=== PATIENT | female | born 1950 | race Caucasian/White ===

== ENCOUNTER 2019-11-15 08:52 | Day surgery (SDC) | payer MEDICARE ==
--- NOTE | 2019-11-15 08:24 | HP ---
DATE OF SURGERY: 11/15/2019 HISTORY OF PRESENT ILLNESS: The patient is a 69 year-old with history of large ulcerated exophytic lesion on her nose that has been increasing in size over the past couple of months. There is concern whether it is a malignancy. She is in need of definitive excision possible skin graft, possible flap. PAST MEDICAL HISTORY: Hypertension, chronic lung disease, chronic shoulder issues. PAST SURGICAL HISTORY: Partial hysterectomy in the past. She had bladder surgery. She had shoulder surgery bilaterally. She had some sort of hiatal hernia repair in the past. MEDICATIONS: Amlodipine, Klor-Con, fluoxetine, Furosemide, Pravastatin for some hyperlipidemia. She is on vitamin B12, flaxseed, calcium, aspirin, omeprazole. ALLERGIES: PREDNISONE. FAMILY HISTORY: Heart disease and cancer. SOCIAL HISTORY: Half pack per day smoker. Denies alcohol abuse. REVIEW OF SYSTEMS: Fourteen systems reviewed. No chest pain or palpitations. Other systems negative or noncontributory as above and per preadmission questionnaire. She denied any prior head or neck radiation. PHYSICAL EXAMINATION: GENERAL: No acute distress. HEENT: Sclerae nonicteric. Nose - She has an ulcerated exophytic lesion on her nose. NECK: No JVD. CHEST: Equal excursion, nonlabored breathing. CVS: Regular rate and rhythm. ABDOMEN: Soft. EXTREMITIES: No significant edema. NEURO: Alert, oriented, moving extremities symmetrically. No gross motor deficits noted. PSYCH: Appropriate mood and affect. IMPRESSION: Nonhealing nose lesion with some ulceration. There is a risk of concern for malignancy. I feel she needs to have excision, possible skin graft or flap, risks and benefits explained in detail including but not limited to bleeding or infection, risk of involved margins possibly other treatments or radiotherapy, general risk of anesthesia, deep venous thrombosis, pulmonary embolism, pneumonia, risk of cardiopulmonary event but not limited to, risk of failure to heal the graft possibly requiring healing by secondary intent, general risk of anesthesia, deep venous thrombosis but not limited to. Consent obtained. Will proceed with excisional biopsy of ulcerated nonhealing lesion of nose as an outpatient.
[~2019-11-15 08:52] MED LIST: Lactated Ringers 1,000 ML IV ONE; MINERAL OIL LIGHT 10 ML FOR SURGERY ONE; Sensorcaine 0.25% 10 ML ONE
[2019-11-15] MEDS ORDERED: Lactated Ringers 1,000 ML IV ONE (09:41)
[2019-11-15] MEDS ORDERED: CEFAZOLIN 2 GM-D5W BAG** 2 GM/50 ML ML IV SCH (10:00)
[2019-11-15] MEDS ORDERED: Lactated Ringers 1,000 ML IV SCH (10:00)
[2019-11-15] MEDS ORDERED: BRIDION 200MG/2ML IV ONE (12:45)
[2019-11-15] MEDS ORDERED: DIPRIVAN 200 MG/20 ML IV ONE (12:45)
[2019-11-15] MEDS ORDERED: Zofran 4 MG/2 ML VIAL ONE (12:45)
[2019-11-15] MEDS ORDERED: TORAdol 30 mg Injection ONE (12:45)
[2019-11-15] MEDS ORDERED: Zemuron 100 MG/10 ML ONE (12:45)
[2019-11-15] MEDS ORDERED: SUBLIMAZE 100 MCG/2 ML ONE ×2 (12:45→14:10)
[2019-11-15] MEDS ORDERED: Versed 2 MG/2 ML Injection ONE (12:46)
[2019-11-15] MEDS ORDERED: Ketamine HCl 50 MG/ML ONE (12:55)
--- NOTE | 2019-11-15 15:20 | OP ---
SURGERY DATE/TIME: 11/15/2019 1253 PREOPERATIVE DIAGNOSIS: Ulcerated nonhealing lesion nose. POSTOPERATIVE DIAGNOSIS: Ulcerated nonhealing lesion nose. PROCEDURE: Excisional biopsy of 2 cm ulcerated nonhealing lesion of the nose with margins with full thickness skin graft coverage 3 cm/sq. SURGEON: Dr. Adolfo Shin. ANESTHESIA: General. ESTIMATED BLOOD LOSS: Minimal. INDICATIONS: As noted above. Risks and benefits explained in detail but not limited to and consent obtained. The site confirmed and marked in preoperative holding area. DESCRIPTION OF PROCEDURE AND FINDINGS: The patient is taken to the operating room. General anesthesia introduced. Prepped and draped in usual sterile fashion. After official time out and no disagreement with planned procedure, marking out to normal appearing skin around this large ulcerated lesion taking up the left side of her nose. Dissection carried down to what appeared to be normal musculature underneath. Specimen passed off. It measured about 2 cm in size. It was thought it was too large for flap coverage. [place] it was best to go ahead and put a skin graft on this area. It seemed to have the best area base of the neck some wrinkled skin. Therefore a full thickness skin graft carefully harvested, defatted and some slits were made in the skin graft to allow for any drainage. It was then secured on the wound bed with interrupted 4-0 Prolene and some 6-0 PDS. Adaptic, mineral oil and compression 2x2 dressing carefully applied with Prolene sutures tied over the top. Sterile dressing was applied. The neck donor site was closed with 3-0 Vicryl and 4-0 Vicryl. Steri-Strips and sterile dressing applied. Again, the skin graft was 2 cm by a little over 1 cm wide so 3 cm/sq surface area full thickness skin graft. The patient tolerated the procedure well. There were no immediate complications. There was no family available here to discuss the findings with currently. I will see her back in the office next week. She is to continue compression dressing until she returns to the office. She can change her other bandages as needed.
[2019-11-15 15:48] VITALS: O2SAT 93
[2019-11-15 15:51] VITALS: BP 155/87; PULSE 72
== END 2019-11-15 15:30 | disposition home or self-care (01) ==
LOC: SDC 08:52
PROVIDERS: ATTEND Surgery
DX: C44.321 Squamous cell carcinoma of skin of nose (principal); I10 Essential (primary) hypertension; E78.5 Hyperlipidemia, unspecified; Z79.899 Other long term (current) drug therapy
CPT/HCPCS: 88305; 99100; J0690; J1885; J2250; J2405; J2704; J3010; A9270-GY

== ENCOUNTER 2021-01-15 09:56 | Day surgery (SDC) | payer MEDICARE ==
--- NOTE | 2021-01-15 08:35 | HP ---
DATE OF SURGERY: 01/15/2021 HISTORY OF PRESENT ILLNESS: The patient is a 70 year-old with change in color of lesion upper abdomen in need of excision of indeterminate behavior. She has also got lesion of indeterminate behavior nasal area also in need of excision. She has prior history of skin cancer. Family history of heart disease, lung cancer. PAST MEDICAL HISTORY: Reflux, hypertension, hyperlipidemia, some anxiety. PAST SURGICAL HISTORY: Cholecystectomy. Hiatal hernia repair. Partial hysterectomy. Shoulder replaced. She had a skin lesion removed in the past from her nose. MEDICATIONS: She has been on amlodipine, Klor-Con, fluoxetine, furosemide, Pravastatin, flaxseed, calcium, aspirin, omeprazole. ALLERGIES: PREDNISONE. FAMILY HISTORY: Heart disease. Lung cancer. SOCIAL HISTORY: Half pack per day smoker. Denies alcohol abuse. REVIEW OF SYSTEMS: Fourteen systems reviewed. Other systems negative or noncontributory as above and per preadmission questionnaire. PHYSICAL EXAMINATION: GENERAL: No acute distress. HEENT: Sclerae nonicteric. NECK: No JVD. CHEST: Equal excursion, nonlabored breathing. CVS: Regular rate and rhythm. ABDOMEN: Soft. No peritoneal signs. EXTREMITIES: No significant edema. NEURO: Alert, oriented, moving extremities symmetrically. PSYCH: Appropriate mood and affect. IMPRESSION: Nonhealing lesion on the nose area as well as on upper abdomen, lesions of indeterminate behavior in need of excisional biopsy. Risks and benefits explained in detail including but not limited to bleeding or infection, risk if cancer risk of involved margins possibly requiring wider excision or other treatments. General risk of anesthesia or sedation, aches, pains, burning or numbness, risk of skin graft needed and possible failure to take of the skin graft possibly requiring healing by secondary intent or other procedures. She understands as well as general risk of anesthesia, deep vein thrombosis, pulmonary embolism, pneumonia, will proceed as an outpatient excisional biopsy of lesion of the nose possible flap closure possible skin graft, excisional biopsy of indeterminate behavior of the abdomen possible flap closure.
[~2021-01-15 09:56] MED LIST changes: -MINERAL OIL LIGHT 10 ML FOR SURGERY ONE
[2021-01-15] MEDS ORDERED: Lactated Ringers 1,000 ML IV ONE (10:40)
[2021-01-15] MEDS ORDERED: CEFAZOLIN 2 GM-D5W BAG** 2 GM/50 ML ML IV SCH (11:00)
[2021-01-15] MEDS ORDERED: Lactated Ringers 1,000 ML IV SCH (11:00)
[2021-01-15] MEDS ORDERED: Zemuron 100 MG/10 ML ONE (13:17)
[2021-01-15] MEDS ORDERED: Zofran 4 MG/2 ML VIAL ONE (13:17)
[2021-01-15] MEDS ORDERED: BRIDION 200MG/2ML IV ONE (13:17)
[2021-01-15] MEDS ORDERED: DIPRIVAN 200 MG/20 ML IV ONE (13:17)
[2021-01-15] MEDS ORDERED: Xylocaine-Mpf 2% 5 Ml Vial ONE (13:17)
[2021-01-15] MEDS ORDERED: SUBLIMAZE 100 MCG/2 ML ONE ×2 (13:17→15:31)
[2021-01-15] MEDS ORDERED: Decadron 4 MG INJ ONE (13:17)
[2021-01-15] MEDS ORDERED: Ephedrine Sulfate 50 MG/ML ONE (14:33)
[2021-01-15 16:41] VITALS: BP 133/96; PULSE 75; O2SAT 96
--- NOTE | 2021-01-16 10:55 | OP ---
SURGERY DATE/TIME: 01/15/2021 1403 PREOPERATIVE DIAGNOSIS: History of prior skin cancer, enlarging lesions of indeterminate behavior nose and abdominal wall. POSTOPERATIVE DIAGNOSIS: History of prior skin cancer, enlarging lesions of indeterminate behavior nose and abdominal wall. PROCEDURES: 1) Excisional biopsy of nonhealing nasal lesion of indeterminate behavior with local advancement flap closure (approximately 1.5 cm with margins). 2) Excisional biopsy of abdominal lesion of indeterminate behavior (approximately 1.5 cm). SURGEON: Dr. Adolfo Shin. ANESTHESIA: General. ESTIMATED BLOOD LOSS: Minimal. INDICATIONS: As noted above. Risks and benefits explained in detail and not limited to and consent obtained. DESCRIPTION OF PROCEDURE AND FINDINGS: The patient is taken to the operating room. General anesthesia induced. The face over nasal area, neck and post-auricular area as well as her abdomen were all prepped and draped in usual sterile fashion. After official time out and no disagreement with planned procedure, starting first with the nasal lesion marking out to normal appearing skin that she has available next to the old skin graft site. Dissection carried down through what appeared to be some normal subcutaneous tissue and carefully dissected off this segment of tissue and passed off for pathology measuring 1.5 cm. Flap was undermined allowing the flaps to be advanced back to the midline with interrupted 4-0 Vicryl and then interrupted 5-0 and 6-0 Prolene interrupted and vertical mattress type sutures to approximate this. The patient tolerated the procedure well. Attention is then turned to the nonhealing abdominal lesion. Dissecting out in spindle-shaped fashion around it. Dissection carried down to normal appearing subcutaneous tissue. It was passed off for pathology. It measured about 1.5 cm with margins closed in intermediate fashion. Deep layer 3-0 Vicryl closing the subcu, deep subcu. Skin closed with 4-0 Vicryl running subcuticular fashion. Steri-Strips and sterile dressing applied. The patient tolerated the procedure well. There were no immediate complications. Findings discussed with the family out in the waiting area.
== END 2021-01-15 16:30 | disposition home or self-care (01) ==
LOC: SDC 09:56
PROVIDERS: ATTEND Surgery
DX: D23.39 Other benign neoplasm of skin of other parts of face (principal); L57.0 Actinic keratosis; D23.5 Other benign neoplasm of skin of trunk; Z85.828 Personal history of other malignant neoplasm of skin
CPT/HCPCS: 99100; J0690; J1100; J2405; J2704; J3010

== ENCOUNTER 2022-05-25 01:40 | Emergency (ER) | payer MEDICARE ==
[2022-05-25] MEDS ORDERED: Hydromorphone 1 mg/ml Injection IV ONE (02:15)
[2022-05-25] MEDS ORDERED: Zofran 4 MG/2 ML VIAL IV ONE (02:15)
[2022-05-25] MEDS ORDERED: Sodium Chloride 0.9% 1000 ML 1,000 ML IV STA (02:15)
[2022-05-25] MEDS ORDERED: Zofran 4 MG/2 ML VIAL ONE (02:25)
[2022-05-25] MEDS ORDERED: Hydromorphone 1 mg/ml Injection ONE (02:26)
[2022-05-25] MEDS ORDERED: Sodium Chloride 0.9% 1000 ML 1,000 ML ONE (02:26)
--- NOTE | 2022-05-25 02:28 | ERPHSYRPT ---
- History of Present Illness Time Seen by Provider: 05/25/22 02:23 Historian: patient, family Exam Limitations: no limitations Patient Subjective Stated Complaint: pt states she has been having pain in her rt lower back for approx 1 week. states the pain was intermmittent for first 3 days and for last 4 days has been more constant and has been much worse yesterday and today. Triage Nursing Assessment: pt alert and oriented, answers questions approp. pt ambulatory with steady gait noted. respirations nonlabored with lungs cta. abd soft and nontender to light palpation. bowel sounds present x4. pt reports no tenderness with palpation to back. reports increase in pain with movement Physician History: Pt has right flank pain similar to her previous kidney stone ( but that was 30 yrs ago) No N or V; abd is nontender without peritoneal signs or masses. No CP or SOBreath. Timing/Duration: today Activities at Onset: none Quality: sharpness, throbbing Abdominal Pain Onset Location: flank Pain Radiation: flank Severity of Pain-Max: moderate Severity of Pain-Current: moderate Associated Symptoms: denies symptoms Previous symptoms: same symptoms as today Allergies/Adverse Reactions: prednisone Allergy (Severe, Verified 05/25/22 02:13) Home Medications: Amlodipine Besylate [Norvasc] 10 mg PO HS 11/04/19 [History] Aspirin EC 81 mg [Ecotrin 81 mg] 81 mg PO HS 11/04/19 [History] Cyanocobalamin (Vitamin B-12) [Vitamin B-12] 1,000 mcg PO DAILY 11/04/19 [History] Fluoxetine HCl 20 mg [Prozac 20 MG] 20 mg PO DAILY 11/04/19 [History] Furosemide 40 mg [Lasix 40 MG] 40 mg PO DAILY 11/04/19 [History] Omeprazole 40 mg PO HS 11/04/19 [History] Potassium Chloride [Klor-Con M20] 20 meq PO DAILY 11/04/19 [History] Pravastatin Sodium [Pravachol] 40 mg PO HS 11/04/19 [History] flaxseed oiL [Flaxseed Oil] 1,400 mg PO DAILY 11/04/19 [History] Calcium Carbonate [Calcium] 1,200 mg PO DAILY 12/27/20 [History] Hx Tetanus, Diphtheria Vaccination/Date Given: Yes (apr 20) Hx Influenza Vaccination/Date Given: Yes Hx Pneumococcal Vaccination/Date Given: Yes Immunizations Up to Date: Yes Travel Risk - International Travel Have you traveled outside of the country in past 3 weeks: No - Coronavirus Screening Are you exhibiting any of the following symptoms?: No Close contact with a COVID-19 positive Pt in past 14-21 Days: No - Vaccine Status Have you recieved a Covid-19 vaccination: Yes 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[employer] - Vaccination Dates Date of 2cond Vaccination (if applicable): august 2020 - Review of Systems Constitutional: No Fever, No Chills Eyes: No Symptoms Ears, Nose, & Throat: No Symptoms Respiratory: No Cough, No Dyspnea Cardiac: No Chest Pain, No Edema, No Syncope Abdominal/Gastrointestinal: No Abdominal Pain, No Nausea, No Vomiting, No Diarrhea Genitourinary Symptoms: Flank Pain, No Dysuria Musculoskeletal: No Back Pain, No Neck Pain Skin: No Rash Neurological: No Dizziness, No Focal Weakness, No Sensory Changes Psychological: No Symptoms Endocrine: No Symptoms Hematologic/Lymphatic: No Symptoms Immunological/Allergic: No Symptoms All Other Systems: Reviewed and Negative - Past Medical History Pertinent Past Medical History: Yes Neurological History: No Pertinent History ENT History: No Pertinent History Cardiac History: Other Respiratory History: No Pertinent History Endocrine Medical History: No Pertinent History Musculoskeletal History: Osteoarthritis GI Medical History: GERD, Other History: No Pertinent History Psycho-Social History: No Pertinent History Female Reproductive Disorders: No Pertinent History Other Medical History: 2 LEAKING VALVES IN HEART; AAA - Past Surgical History Past Surgical History: Yes Neuro Surgical History: No Pertinent History Cardiac: No Pertinent History Respiratory: No Pertinent History Gastrointestinal: Cholecystectomy, Hernia Repair Genitourinary: No Pertinent History Musculoskeletal: Joint Replacement Female Surgical History: Hysterectomy Other Surgical History: partial hysterectomy. bilateral shoulder replacement, lt shoulder x2. 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 AAA repair with 5 stents- december 2021 - Social History Smoking Status: Current every day smoker How long have you smoked: 44 years Exposure to second hand smoke: Yes Drug Use: none Patient Lives Alone: No - Nursing Vital Signs Nursing Vital Signs: Initial Vital Signs Temperature 97.8 F 05/25/22 01:54 Pulse Rate 56 L 05/25/22 01:54 Respiratory Rate 16 05/25/22 01:54 Blood Pressure 129/90 05/25/22 01:54 O2 Sat by Pulse Oximetry 98 05/25/22 01:54 Pain Scale Pain Intensity 3 - Physical Exam General Appearance: no apparent distress, alert Eye Exam: PERRL/EOMI, eyes nml inspection Ears, Nose, Throat Exam: normal ENT inspection, pharynx normal, moist mucous membranes Neck Exam: normal inspection, non-tender, supple, full range of motion Respiratory Exam: normal breath sounds, lungs clear, No respiratory distress Cardiovascular Exam: regular rate/rhythm, normal heart sounds Gastrointestinal/Abdomen Exam: soft, No tenderness, No mass Pelvic Exam: deferred Rectal Exam: deferred Back Exam: normal inspection, normal range of motion, No CVA tenderness, No vertebral tenderness Extremity Exam: normal inspection, normal range of motion, pelvis stable Neurologic Exam: alert, oriented x 3, cooperative, normal mood/affect, nml cerebellar function, sensation nml, No motor deficits Skin Exam: normal color, warm, dry SpO2 Interpretation: normal SpO2: 98 O2 Delivery: Room Air - Course Nursing assessment & vital signs reviewed: Yes Ordered Tests: Active Orders 24 hr Category Date Time Status IV Insertion STAT Care 05/25/22 02:15 Active ABDOMEN AND PELVIS W/0 CONTRAS [CT] Stat Exams 05/25/22 02:16 Taken CBC W DIFF Stat Lab 05/25/22 02:24 Completed CMP Stat Lab 05/25/22 02:24 Completed CULTURE,URINE Stat Lab 05/25/22 02:23 Received LIPASE Stat Lab 05/25/22 02:24 Completed Lactic Acid Stat Lab 05/25/22 02:15 Completed UA W/RFX CULTURE Stat Lab 05/25/22 02:23 Completed Medication Summary Discontinued Medications Generic Name Dose Route Start Last Admin Trade Name Aleksandar PRN Reason Stop Dose Admin Hydromorphone HCl 1 mg 05/25/22 02:15 05/25/22 02:28 Hydromorphone 1 Mg/1ml Inj 1 Mg/Ml Syringe IV 05/25/22 02:16 1 mg STAT ONE Administration Hydromorphone HCl Confirm 05/25/22 02:26 Hydromorphone 1 Mg/1ml Inj 1 Mg/Ml Syringe Administered 05/25/22 02:27 Dose 1 mg .ROUTE .STK-MED ONE Sodium Chloride 1,000 mls @ 999 mls/hr 05/25/22 02:15 05/25/22 02:29 Sodium Chloride 0.9% 1000 Ml IV 05/25/22 03:15 999 mls/hr .Q1H1M STA Administration Sodium Chloride Confirm 05/25/22 02:26 Sodium Chloride 0.9% 1000 Ml Administered 05/25/22 02:27 Dose 1,000 mls @ ud .ROUTE .STK-MED ONE Ondansetron HCl 4 mg 05/25/22 02:15 05/25/22 02:29 Ondansetron Hcl 4 Mg/2 Ml Vial IV 05/25/22 02:16 4 mg STAT ONE Administration Ondansetron HCl Confirm 05/25/22 02:25 Ondansetron Hcl 4 Mg/2 Ml Vial Administered 05/25/22 02:26 Dose 4 mg .ROUTE .STK-MED ONE Lab/Rad Data: Laboratory Result Diagrams 05/25/22 02:24 05/25/22 02:24 Laboratory Results 05/25/22 05/25/22 05/25/22 Range/Units 02:24 02:24 02:23 WBC 5.7 (4.0-10.5) x10^3/uL RBC 4.37 (4.1-5.4) x10^6/uL Hgb 14.4 (12.0-16.0) g/dL Hct 43.6 (35-47) % MCV 99.8 (78-100) fL MCH 33.0 H (26-32) pg MCHC 33.0 (32-36) g/dL RDW 13.2 (11.5-14.0) % Plt Count 136 L (150-450) x10^3/uL MPV 11.6 H (7.5-11.0) fL Gran % 31.8 L (36.0-66.0) % Immature Gran % (Auto) 0.2 (0.00-0.4) % Nucleat RBC Rel Count 0.0 (0.00-0.1) % Eos # (Auto) 0.13 (0-0.5) x10^3/uL Immature Gran # (Auto) 0.01 (0.00-0.03) x10^3u/L Absolute Lymphs (auto) 3.26 (1.0-4.6) x10^3/uL Absolute Monos (auto) 0.43 (0.0-1.3) x10^3/uL Absolute Nucleated RBC 0.00 (0.00-0.01) x10^3u/L Lymphocytes % 57.4 H (24.0-44.0) % Monocytes % 7.6 (0.0-12.0) % Eosinophils % 2.3 (0.00-5.0) % Basophils % 0.7 (0.0-0.4) % Absolute Granulocytes 1.81 (1.4-6.9) x10^3/uL Basophils # 0.04 (0-0.4) x10^3/uL Sodium 137 (137-145) mmol/L Potassium 3.9 (3.5-5.1) mmol/L Chloride 108 H (98-107) mmol/L Carbon Dioxide 20 L (22-30) mmol/L Anion Gap 12.9 (5-15) MEQ/L BUN 20 H (7-17) mg/dL Creatinine 1.01 (0.52-1.04) mg/dL Estimated GFR 57.1 ML/MIN Glucose 106 (74-106) mg/dL Lactic Acid (0.4-2.0) Calcium 9.1 (8.4-10.2) mg/dL Total Bilirubin 0.40 (0.2-1.3) mg/dL AST 23 (14-36) U/L ALT 16 (0-35) U/L Alkaline Phosphatase 71 (38-126) U/L Serum Total Protein 7.3 (6.3-8.2) g/dL Albumin 4.1 (3.5-5.0) g/dL Lipase 110 (23-300) U/L Urinalys Dipstick Clnc MAIN LAB Urine Color YELLOW (YELLOW) Urine Appearance CLEAR (CLEAR) Urine pH 6.0 (5-6) Ur Specific [place] 1.020 (1.005-1.025) POC Urine Protein Conf NEGATIVE (Negative) Urine Ketones NEGATIVE (NEGATIVE) Urine Nitrite NEGATIVE (NEGATIVE) Urine Bilirubin NEGATIVE (NEGATIVE) Urine Urobilinogen 0.2 (0-1) mg/dL Urine Leukocytes TRACE A (NEGATIVE) Urine WBC (Auto) 6-10 A (0-5) /HPF Urine RBC (Auto) 0-2 (0-2) /HPF U Epithel Cells (Auto) RARE (FEW) /HPF Urine Bacteria (Auto) RARE (NEGATIVE) /HPF Urine RBC TRACE-INTACT A (0-5) [place]vel[place]/ul Calcium Oxalate Crystal 51-99 A (NEGATIVE) /HPF Ur Culture Indicated? YES Urine Glucose NEGATIVE (NEGATIVE) mg/dL 05/25/22 Range/Units 02:15 WBC (4.0-10.5) x10^3/uL RBC (4.1-5.4) x10^6/uL Hgb (12.0-16.0) g/dL Hct (35-47) % MCV (78-100) fL MCH (26-32) pg MCHC (32-36) g/dL RDW (11.5-14.0) % Plt Count (150-450) x10^3/uL MPV (7.5-11.0) fL Gran % (36.0-66.0) % Immature Gran % (Auto) (0.00-0.4) % Nucleat RBC Rel Count (0.00-0.1) % Eos # (Auto) (0-0.5) x10^3/uL Immature Gran # (Auto) (0.00-0.03) x10^3u/L Absolute Lymphs (auto) (1.0-4.6) x10^3/uL Absolute Monos (auto) (0.0-1.3) x10^3/uL Absolute Nucleated RBC (0.00-0.01) x10^3u/L Lymphocytes % (24.0-44.0) % Monocytes % (0.0-12.0) % Eosinophils % (0.00-5.0) % Basophils % (0.0-0.4) % Absolute Granulocytes (1.4-6.9) x10^3/uL Basophils # (0-0.4) x10^3/uL Sodium (137-145) mmol/L Potassium (3.5-5.1) mmol/L Chloride (98-107) mmol/L Carbon Dioxide (22-30) mmol/L Anion Gap (5-15) MEQ/L BUN (7-17) mg/dL Creatinine (0.52-1.04) mg/dL Estimated GFR ML/MIN Glucose (74-106) mg/dL Lactic Acid 1.0 (0.4-2.0) Calcium (8.4-10.2) mg/dL Total Bilirubin (0.2-1.3) mg/dL AST (14-36) U/L ALT (0-35) U/L Alkaline Phosphatase (38-126) U/L Serum Total Protein (6.3-8.2) g/dL Albumin (3.5-5.0) g/dL Lipase (23-300) U/L Urinalys Dipstick Clnc Urine Color (YELLOW) Urine Appearance (CLEAR) Urine pH (5-6) Ur Specific [place] (1.005-1.025) POC Urine Protein Conf (Negative) Urine Ketones (NEGATIVE) Urine Nitrite (NEGATIVE) Urine Bilirubin (NEGATIVE) Urine Urobilinogen (0-1) mg/dL Urine Leukocytes (NEGATIVE) Urine WBC (Auto) (0-5) /HPF Urine RBC (Auto) (0-2) /HPF U Epithel Cells (Auto) (FEW) /HPF Urine Bacteria (Auto) (NEGATIVE) /HPF Urine RBC (0-5) Avelino/ul Calcium Oxalate Crystal (NEGATIVE) /HPF Ur Culture Indicated? Urine Glucose (NEGATIVE) mg/dL - Progress Progress: improved, re-examined Progress Note: 05/25/22 04:59 pain has resolved. I explained to the pt that although there are kidney stones I cannot absolutely dtermine the cause for the symptoms and there could be other pathology evolving undetected ( including with her repaired AAA) - so I advise further workup with her and to return meantime if not improving or other symptoms of concern. she wishes DC with out pt f/u rather than further w/u in ER or admission at this time and has the capacity to make this choice 05/25/22 05:02 Counseled pt/family regarding: lab results, diagnosis, need for follow-up, rad results - Departure Departure Disposition: Home Clinical Impression: Renal calculus, Abdominal pain Condition: Good Critical Care Time: No Referrals: ANN AG NP [Primary Care Provider] - Follow up/PCP as directed Instructions: Kidney Stones (DC), Flank Pain, Abdominal Pain, Adult ED, Urinary Tract Infection, Adult (DC) Additional Instructions: YOu have kidney stones and a urinary infection so we are treating for that but also providing instructions for abdominal pain as well since there may be other conditions to watch for which could be causing some of your symptoms. Followup with maria guadalupe Wadsworth this week, and return meatnime if not improving or with any further symptoms of concern. use strainer to strain your urine for stones Prescriptions: Hydrocodone/Acetaminophen [Hydrocodone-Acetamin 5-325 mg] 1 tab PO Q6HPRN PRN #7 tablet MDD 4 PRN Reason: Pain Smz/Tmp Ds Tablet [Bactrim Ds Tablet] 1 tab PO Q12H #20 tablet
[2022-05-25 02:29] LABS: Absolute Neutrophil Ct (ANC) 1.81 x10^3/uL (1.4-6.9); Basophil (Absolute #) 0.04 x10^3/uL (0-0.4); Eosinophil % 2.3 % (0.00-5.0); Eosinophil (Absolute #) 0.13 x10^3/uL (0-0.5); Hematocrit 43.6 % (35-47); Hemoglobin 14.4 g/dL (12.0-16.0); Lymphocyte (Absolute #) 3.26 x10^3/uL (1.0-4.6); Lymphocytes % 57.4 % (24.0-44.0); Mean Cell Volume 99.8 fL (78-100); Mean Platelet Volume 11.6 fL (7.5-11.0); Monocyte (Absolute #) 0.43 x10^3/uL (0.0-1.3); Monocytes % 7.6 % (0.0-12.0); Neutrophil % 31.8 % (36.0-66.0); Platelet Count 136 x10^3/uL (150-450); Red Blood Count 4.37 x10^6/uL (4.1-5.4); Red Cell Distribution Width 13.2 % (11.5-14.0); White Blood Count 5.7 x10^3/uL (4.0-10.5)
[2022-05-25 02:34] LABS: Appearance CLEAR (CLEAR); Bilirubin NEGATIVE (NEGATIVE); Dipstick done @ ? MAIN LAB; Glucose NEGATIVE (NEGATIVE); Ketones NEGATIVE (NEGATIVE); Nitrite NEGATIVE (NEGATIVE); Protein,Urine Dip NEGATIVE (Negative); RBC TRACE-INTACT Ery/ul (0-5); Urobilinogen 0.2 mg/dL (0-1)
[2022-05-25 02:36] LABS: Bacteria RARE /HPF (NEGATIVE); Epithelial Cells RARE /HPF (FEW); RBC 0-2 /HPF (0-2); Urine Cultured Indicated? YES
[2022-05-25 02:41] LABS: ALBUMIN 4.1 g/dL (3.5-5.0); ANION GAP 12.9 MEQ/L (5-15); BILIRUBIN,TOTAL 0.4 mg/dL (0.2-1.3); Calcium 9.1 mg/dL (8.4-10.2); Creatinine 1 1.01 mg/dL (0.52-1.04); EST GLOMERULAR FILTRATION RATE 57.1 ML/MIN; Potassium 3.9 mmol/L (3.5-5.1); Total Protein 7.3 g/dL (6.3-8.2)
[2022-05-25 06:14] VITALS: BP 128/63; PULSE 69; O2SAT 96
--- NOTE | 2022-05-25 08:08 | XRAY ---
Indication: Right abdomen pain 10 days. Multiple contiguous axial images obtained through the abdomen and pelvis without contrast. Comparison: None Lung bases demonstrates mild bibasilar dependent atelectasis and tiny calcific granuloma posterior right lower lobe. Heart not enlarged. Noncontrasted stomach and bowel loops appear nonobstructed. Mild diffuse scattered colonic fecal debris throughout and scattered descending/sigmoid diverticulosis without diverticulitis. Nonobstructing 8 mm left renal calculus. Cholecystectomy, hysterectomy, and appendectomy reported. No free fluid/air. Remaining liver, pancreas, spleen, adrenal glands, kidneys, ureters, and bladder are unremarkable for noncontrast exam. Mild scattered aortoiliac calcifications with 5 cm distal AAA and aortobiiliac stent grafts. Lack of IV contrast precludes further characterization. Osseous structures intact with osteopenia, mild dextroscoliosis, mild/moderate multilevel degenerative spondylosis, 3-4 mm L4 listhesis, and mild degenerative changes both hips. Impression: 1. Mild fecal stasis, scattered colonic diverticulosis, nonobstructing left renal calculus, and chronic bony findings. 2. Arteriosclerotic disease with AAA and aortobiiliac stent graft. Lack of IV contrast precludes further characterization. 3. No acute intra-abdominal/pelvic abnormalities on this noncontrast exam. Comment: Preliminary interpretation made by [facility]. No critical discrepancy.
== END 2022-05-25 06:15 | disposition home or self-care (01) ==
LOC: ED 01:40
DX: N20.0 Calculus of kidney (principal); R10.9 Unspecified abdominal pain; Z72.0 Tobacco use; Z79.899 Other long term (current) drug therapy
CPT/HCPCS: 36000; 36415; 74176; 80053; 81015; 83605; 83690; 85025; 87086; 96374; 96375; 99284; J1170; J2405

== ENCOUNTER 2024-04-28 21:23 | Emergency (ER) | payer MEDICARE ==
[2024-04-28 21:37] VITALS: TEMP 97
[2024-04-28] MEDS ORDERED: Zofran 4 MG/2 ML VIAL ONE (21:40)
[2024-04-28] MEDS ORDERED: MORPHINE SULFATE 2 MG INJ ONE (21:40)
[2024-04-28] MEDS: MORPHINE SULFATE 2 MG INJ IV ONE (21:41)
[2024-04-28] MEDS: Zofran 4 MG/2 ML VIAL IV ONE (21:41)
--- NOTE | 2024-04-28 21:45 | ERPHSYRPT ---
- History of Present Illness Time Seen by Provider: 04/28/24 21:35 Source: patient Exam Limitations: no limitations Patient Subjective Stated Complaint: c/o of fall Triage Nursing Assessment: Patient brought to ED by with c/o of fall. Patient fell backwards on cement and hit her head, neck, and lower back. Rates pain 9/10. Patient stated her cat got outside and she was trying to get her and the cat ran between her legs and she fell back. Patient denies LOC, states she is nauseous but hasn't vomitted, C-collar placed upon arrival of ED, skin w/n/d, hypertensive, brought in by wheelchair, pt doesn't appear to be in any distress at this time. Physician History: 73-year-old female presents to emergency department status post fall just prior to arrival. Patient states she was outdoors. Patient's cat ran between her legs thereby causing her to fall backwards. Patient hit the back of her head on concrete. Patient complains of nausea neck pain and low back pain. No loss of consciousness no vomiting. The fall was not associated with any neuro cardiovascular symptomology. No chest pain or shortness of breath. No diaphoresis no vomiting no numbness tingling or weakness. No other injuries reported. No blurred vision no focal or lateralizing symptoms. Symptoms are constant. Symptoms are moderate in intensity. Movement reproduces pain. Pain improved with rest. No other injuries reported. at bedside. They voiced no other complaints or concerns at this time. Portions of this note were created with voice recognition technology. There may be grammatical, spelling, punctuation or sound alike errors Timing/Duration: today Severity: moderate Modifying Factors: Improves With: movement Associated Symptoms: nausea Allergies/Adverse Reactions: prednisone Allergy (Severe, Verified 04/28/24 21:37) Home Medications: Amlodipine Besylate [Norvasc] 5 mg PO HS 11/04/19 [History] Aspirin EC 81 mg [Ecotrin 81 mg] 81 mg PO HS 11/04/19 [History] Cyanocobalamin (Vitamin B-12) [Vitamin B-12] 1,000 mcg PO DAILY 11/04/19 [Hi story] Fluoxetine HCl 20 mg [Prozac 20 MG] 20 mg PO DAILY 11/04/19 [History] Potassium Chloride [Klor-Con M20] 20 meq PO DAILY 11/04/19 [History] Pravastatin Sodium [Pravachol] 40 mg PO HS 11/04/19 [History] flaxseed oiL [Flaxseed Oil] 1,400 mg PO DAILY 11/04/19 [History] Calcium Carbonate [Calcium] 1 tab PO BID 12/27/20 [History] Furosemide 20 mg [Lasix 20 mg] 1 tab PO DAILY 01/16/23 [History] Hx Tetanus, Diphtheria Vaccination/Date Given: Yes Hx Influenza Vaccination/Date Given: Yes Hx Pneumococcal Vaccination/Date Given: Yes Travel Risk - International Travel Have you traveled outside of the country in past 3 weeks: No - Emerging Infectious Disease Are you exhibiting symptoms associated with any current EIDs: No - Review of Systems Constitutional: No Symptoms, No Fever, No Chills Eyes: No Symptoms Ears, Nose, & Throat: No Symptoms Respiratory: No Symptoms, No Cough, No Dyspnea Cardiac: No Symptoms, No Chest Pain, No Edema, No Syncope Abdominal/Gastrointestinal: No Symptoms, No Abdominal Pain, No Nausea, No Vomiting, No Diarrhea Genitourinary Symptoms: No Symptoms, No Dysuria Musculoskeletal: No Symptoms, No Back Pain, No Neck Pain Skin: No Symptoms, No Rash Neurological: No Symptoms, No Dizziness, No Focal Weakness, No Sensory Changes Psychological: No Symptoms Endocrine: No Symptoms Hematologic/Lymphatic: No Symptoms Immunological/Allergic: No Symptoms All Other Systems: Reviewed and Negative - Past Medical History Pertinent Past Medical History: Yes Neurological History: No Pertinent History ENT History: No Pertinent History Cardiac History: Hypertension, Other Respiratory History: No Pertinent History Endocrine Medical History: No Pertinent History Musculoskeletal History: Osteoarthritis GI Medical History: GERD, Hernia, Other History: No Pertinent History Psycho-Social History: No Pertinent History Female Reproductive Disorders: No Pertinent History Other Medical History: 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 bilateral shoulder replacement, lt shoulder x2. 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 AAA repair with 5 stents- december 2021 - Social History Smoking Status: Current every day smoker How long have you smoked: 45 years Exposure to second hand smoke: Yes Drug Use: none Patient Lives Alone: No - Social Determinants of Health Will the patient participate in the screening: Yes Do you worry about a steady place to live?: No Do you have any problems with any of the following?: No known problems In the past 12 months,have you had to go without utilities?: No Transportation Issues: No Has anyone in your support network made you feel unsafe?: No Have you or anyone in your house had to go without enough: No - Nursing Vital Signs Nursing Vital Signs: Initial Vital Signs Temperature 97 F 04/28/24 21:25 Pulse Rate 83 04/28/24 21:25 Respiratory Rate 21 04/28/24 21:25 Blood Pressure 154/109 04/28/24 21:25 O2 Sat by Pulse Oximetry 97 04/28/24 21:25 Pain Scale Pain Intensity 7 - Physical Exam General Appearance: no apparent distress, alert Eye Exam: PERRL/EOMI, eyes nml inspection Ears, Nose, Throat Exam: normal ENT inspection, TMs normal, pharynx normal, moist mucous membranes Neck Exam: normal inspection, supple, other (Midline C-spine pain tenderness to palpation) Respiratory Exam: normal breath sounds, lungs clear, airway intact, No respiratory distress Cardiovascular Exam: regular rate/rhythm, normal heart sounds, normal peripheral pulses Gastrointestinal/Abdomen Exam: soft, normal bowel sounds, No tenderness, No mass Back Exam: normal inspection, normal range of motion, other (Tenderness to palpation lumbar spine at midline and an adjacent lumbar paraspinal musculature.), No CVA tenderness, No vertebral tenderness Extremity Exam: normal inspection, normal range of motion, pelvis stable Neurologic Exam: alert, oriented x 3, cooperative, normal mood/affect, nml cerebellar function, nml station & gait, sensation nml, No motor deficits Skin Exam: normal color, warm, dry, No rash Lymphatic Exam: No adenopathy SpO2 Interpretation: normal SpO2: 97 O2 Delivery: Room Air - Course Nursing assessment & vital signs reviewed: Yes - CT Exams Lumbar Spine CT Interpretation: Tele-radiologist Report (Anterolisthesis L4 over L5 L5 over L1, spinal canal stenosis, neuroforaminal stenosis, chronic sacroiliitis, 5 cm AAA) Head CT Interpretation: Tele-radiologist Report (No acute intracranial process) Cervical Spine CT Interpretation: Tele-radiologist Report (Advanced degenerative changes. No acute process observed at the cervical spine) Ordered Tests: Active Orders 24 hr Category Date Time Status Cervical Collar Application STAT Care 04/28/24 21:37 Active IV Insertion STAT Care 04/28/24 21:39 Active CERVICAL SPINE WO CONTRAST [CT] Stat Exams 04/28/24 21:37 Completed HEAD WITHOUT CONTRAST [CT] Stat Exams 04/28/24 21:37 Completed LUMBAR SPINE W/O [CT] Stat Exams 04/28/24 21:37 Completed Medication Summary Discontinued Medications Generic Name Dose Route Start Last Admin Trade Name Freq PRN Reason Stop Dose Admin Morphine Sulfate 2 mg 04/28/24 21:38 04/28/24 21:41 Morphine Sulfate 2 Mg/Ml Inj IV 04/28/24 21:39 2 mg STAT ONE Administration Morphine Sulfate Confirm 04/28/24 21:40 Morphine Sulfate 2 Mg/Ml Inj Administered 04/28/24 21:41 Dose 2 mg .ROUTE .STK-MED ONE Ondansetron HCl 4 mg 04/28/24 21:38 04/28/24 21:41 Ondansetron Hcl 4 Mg/2 Ml Vial IV 04/28/24 21:39 4 mg STAT ONE Administration Ondansetron HCl Confirm 04/28/24 21:40 Ondansetron Hcl 4 Mg/2 Ml Vial Administered 04/28/24 21:41 Dose 4 mg .ROUTE .STK-MED ONE - Progress Progress: improved Progress Note: 73-year-old female presents to our ED for evaluation status post fall. Patient complains of neck low back and pain to the back of her head mild nausea. Nausea resolved. Patient likely experiencing a mild concussion. Patient received morphine and Zofran. Pain significantly improved. CT head negative for acute intracranial pathology. CT cervical spine negative for acute pathology. No acute findings observed on L-spine CT scan. Incidental 5 cm AAA. Patient states that she sees a vascular surgeon Dr. Bender for this AAA. She has had surgery on the AAA. She is not having any abdominal pain or symptomology regarding the AAA. No pulsatile abdominal masses. Distal pulses PT DP pulses are equal bilaterally. However we advised patient to follow-up with Dr. Ingram regarding the AAA for reassessment as it measures 5 cm. Patient agrees to do so and will call in the morning. Portions of this note were created with voice recognition technology. There may be grammatical, spelling, punctuation or sound alike errors Complexity problem addressed is moderate acute complicated. No critical care time. Complex of data reviewed and analyzed is moderate. Test ordered test reviewed results analyzed and correlated clinically with history and physical exam. Risk of complication and or risk of morbidity/mortality of patient management is low. Vital stable. Time spent to discharge patient is approximately 15 minutes. Plan of care established for shared decision making. No social determinants of health present to impede follow-up. Portions of this note were created with voice recognition technology. There may be grammatical, spelling, punctuation or sound alike errors 04/28/24 23:44 04/28/24 23:44 Counseled pt/family regarding: diagnosis, need for follow-up, rad results - Departure Departure Disposition: Home Clinical Impression: Fall, Concussion, Lumbosacral strain, Cervical strain, AAA (abdominal aortic aneurysm), Central stenosis of spinal canal, Neuroforaminal narrowing, Chronic sacroiliitis Condition: Stable Critical Care Time: No Referrals: ANN AG NP [Primary Care Provider] - Follow up/PCP as directed Additional Instructions: You have a AAA measuring 5 cm. Please follow-up with Dr. Ingram your vascular surgeon for reassessment. Discharge/Care Plan [facility] was seen on 04/28/24 in the Emergency Room. The patient was counseled regarding Diagnosis,Lab results, Imaging studies, need for follow up and when to return to the Emergency Room. Prescriptions given: Discharge Note I have spoken with the patient and/or caregivers. I have explained the patient's condition, diagnosis and treatment plan based on the information available to me at this time. I have answered the patient's and/or caregiver's questions and addressed any concerns. The patient and/or caregivers have as good understanding of the patient's diagnosis, condition and treatment plan as can be expected at this point. The vital signs have been stable. The patient's condition is stable and appropriate for discharge from the emergency department. The patient will pursue further outpatient evaluation with the primary care physician or other designated or consulting physician as outlined in the discharge instructions. The patient and/or caregivers are agreeable to this plan of care and follow-up instructions have been explained in detail. The patient and/or caregivers have received these instruction. The patient/and or caregivers are aware that any significant change in condition or worsening of symptoms should prompt an immediate return to this or the closest emergency department or call 911.
--- NOTE | 2024-04-28 22:56 | XRAY ---
CLINICAL HISTORY: trauma COMPARISON: None. TECHNIQUE: Axial noncontrast CT scan of the brain was performed from the skull base to the high parietal region. One of the following dose reduction techniques were utilized for this exam: Automated exposure control, adjustment of the mA and/or kV according to patient size, use of iterative reconstruction. FINDINGS: No intracerebral or extra axial hematoma. There are hypodense areas noted in the subcortical and periventricular white matter bilaterally, suggestive of microvascular ischemic changes. The subcortical hypodense areas in the right posterior parietal region appear to be part of chronic microvascular ischemic changes. The ventricular system, cortical sulci and basal cisterns are prominent and consistent with senile changes. The visualized brain parenchyma shows normal appearance. Doss-white matter differentiation is maintained. No midline shifts or deformity. Normal CT appearance of the posterior fossa structures namely the cerebellar hemispheres, brainstem and cerebellar peduncles. The cerebello-pontine angles are clear. The osseous structures in the skull base are unremarkable. No definite calvarium fractures. The scanned paranasal sinuses are clear. Mild right-sided nasal septal deviation. IMPRESSION: 1. No intracerebral or extra axial hematoma. 2. Mild chronic microvascular ischemic changes with senile cortical atrophy. Electronically Signed by: Bruce Holder MD. (04/28/2024 22:52:01 EDT)
--- NOTE | 2024-04-28 23:09 | XRAY ---
CLINICAL HISTORY: trauma COMPARISON: None. TECHNIQUE: Thin axial CT of the cervical spine was performed with sagittal and coronal reconstructions without contrast. One of the following dose reduction techniques were utilized for this exam: Automated exposure control, adjustment of the mA and/or kV according to patient size, use of iterative reconstruction. FINDINGS: Loss of cervical lordosis with straightening of curvature noted. Grade I anterolisthesis of C3 over C4 and grade I retrolisthesis of C5 over C6 noted. Multilevel anterior and posterior osteophytes, uncovertebral joint hypertrophy, and facetal arthropathy noted. Significant atlanto-dental osteoarthritic changes. The vertebral bodies are normal in height. No lytic or sclerotic bone lesion. The craniovertebral measures are unremarkable. Intervertebral disc spaces: Moderate to severe reduction in height of intervertebral disc spaces between C5-C6 noted. Multilevel disc osteophyte complexes and facet arthropathy resulting in neural foramina narrowing. MR is advised for further evaluation. The paravertebral spaces appear normal. No abnormality was detected in the prevertebral region. IMPRESSION: 1. No acute traumatic injury in the cervical spine at present. 2. Advanced degenerative changes in cervical spine. Electronically Signed by: Bruce Holder MD. (04/28/2024 23:05:33 EDT)
[2024-04-28 23:13] VITALS: BP 117/58; PULSE 69; RESP 18
--- NOTE | 2024-04-28 23:15 | XRAY ---
CLINICAL HISTORY: trauma COMPARISON: None. TECHNIQUE: Multiple axial images of CT lumbar spine without contrast was submitted in bone and soft tissue window. One of the following dose reduction techniques were utilized for this exam: Automated exposure control, adjustment of the mA and/or kV according to patient size, use of iterative reconstruction. FINDINGS: No acute fracture in lumbar spine Grade 1 anterolisthesis of L4 over L5 and L5 over S1. Exaggeration of lumbar lordotic curvature. Mild dextroscoliosis of the lumbar spine. Diffuse osteopenic changes noted. Multilevel marginal anterior osteophytes and facetal arthropathy were noted. Moderate to severe reduction of intervertebral disc spaces at T11-T12, T12 and L1, L3-L4, and L5-S1 levels noted with vacuum phenomenon. Posterior disc osteophyte complex at L3-4 level resulting in moderate to severe spinal canal stenosis and neural foraminal narrowing. Multilevel disc bulges resulting in neuroforaminal narrowing. No paravertebral soft tissue swelling is seen. Bilateral chronic sacroiliitis with vacuum phenomenon noted An incidental note is made of an abdominal aortic aneurysm, measuring 5 cm in maximum caliber with an aortoiliac stent graft. Vascular atherosclerotic changes were noted. Colonic diverticulosis noted. Mildly dilated small bowel loops are seen in the visualized abdomen and pelvis. IMPRESSION: 1. No acute fracture in lumbar spine. 2. Advanced degenerative changes in lumbar spine. 3. Bilateral chronic sacroiliitis with vacuum phenomenon. 4. Incidental note is made of an abdominal aortic aneurysm, measuring 5 cm in maximum caliber with an aortoiliac stent graft. Vascular atherosclerotic changes noted. 5. Mildly dilated small bowel loops are seen in the visualized abdomen and pelvis. Recommended CT abdopelvis examination if clinically warranted. Electronically Signed by: Bruce Holder MD. (04/28/2024 23:09:56 EDT)
[2024-04-28 23:38] VITALS: O2SAT 97
== END 2024-04-28 23:57 | disposition home or self-care (01) ==
LOC: ED 21:23
DX: S06.0X0A Concussion without loss of consciousness, initial encounter (principal); S39.012A Strain of muscle, fascia and tendon of lower back, initial encounter; S16.1XXA Strain of muscle, fascia and tendon at neck level, initial encounter; W01.0XXA Fall on same level from slipping, tripping and stumbling without subsequent striking against object, initial encounter; Y92.007 Garden or yard of unspecified non-institutional (private) residence as the place of occurrence of the external cause; I71.40 Abdominal aortic aneurysm, without rupture, unspecified; M48.061 Spinal stenosis, lumbar region without neurogenic claudication; M46.1 Sacroiliitis, not elsewhere classified; R11.0 Nausea; I10 Essential (primary) hypertension; Z79.899 Other long term (current) drug therapy; Z72.0 Tobacco use
CPT/HCPCS: 36000; 70450; 72125; 72131; 96374; 96375; 99284; J2270; J2405

== ENCOUNTER 2024-09-29 13:56 | Day surgery (SDC) | payer MEDICARE ==
[2024-09-29] MEDS ORDERED: BUPIVACAINE 0.5% VIAL IJ ONE (13:57)
[2024-09-29] MEDS ORDERED: Depo-Medrol 40 MG/ML IM ONE (13:57)
[2024-09-29] MEDS ORDERED: propofoL IV ONE (15:13)
--- NOTE | 2024-09-29 16:32 | XRAY ---
Indication: Left greater trochanter bursa injection. Intraoperative fluoroscopy provided for 9 seconds. Single digital spot image submitted for interpretation demonstrates needle tip lateral to left greater trochanter. Small amount of contrast injected for needle tip placement. Correlate with intraoperative findings/report.
--- NOTE | 2024-09-29 16:37 | XRAY ---
9 seconds of fluoroscopy was used in surgery for a left greater trochanteric bursa injection.
== END 2024-09-29 16:00 | disposition home or self-care (01) ==
LOC: SDC-PAIN 13:56
PROVIDERS: ATTEND Psychiatry & Neurology Pain Medicine
DX: M16.12 Unilateral primary osteoarthritis, left hip (principal)
CPT/HCPCS: 20610; 73501; 77002; J2704; Q9966

== ENCOUNTER 2025-01-27 09:36 | Day surgery (SDC) | payer MEDICARE ==
[2025-01-27] MEDS ORDERED: BUPIVACAINE 0.5% VIAL IJ ONE (09:37)
[2025-01-27] MEDS ORDERED: propofoL IV ONE (11:40)
--- NOTE | 2025-01-27 12:12 | XRAY ---
Indication: Bilateral L4-S1 MBB. Intraoperative fluoroscopy provided for 9 seconds. Single digital spot image submitted for interpretation demonstrates posterior needle tips projecting over expected left and right L4-S1 nerve roots. Correlate with intraoperative findings/report. Incidental incompletely visualized aorto bi-iliac stents.
[2025-01-27] MEDS ORDERED: Lactated Ringers 1,000 ML IV ONE (12:20)
--- NOTE | 2025-01-27 13:00 | XRAY ---
9 seconds of fluoroscopy was used in surgery for a bilateral L4-S1 MBB.
== END 2025-01-27 12:10 | disposition home or self-care (01) ==
LOC: SDC-PAIN 09:36
PROVIDERS: ATTEND Psychiatry & Neurology Pain Medicine
DX: M47.817 Spondylosis without myelopathy or radiculopathy, lumbosacral region (principal)